=== PATIENT | male | born 1940 | race Caucasian/White ===

== ENCOUNTER 2019-01-20 12:00 | Observation (INO) | payer OTHER ==
[~2019-01-20] VITALS: Ht 190.5 cm; Wt 87.0 kg
[~2019-01-20 12:00] MED LIST: FINA5TAB4 PO; LEVO200T5 PO; LOSA25TA25 PO; TADA5TAB2 PO; TAMS-11 PO
[2019-01-20] MEDS ORDERED: LACTATED RINGERS 1,000 ML IV SCH (12:19)
[2019-01-20] MEDS ORDERED: ACETAMINOPHEN 500 MG TABLET PO ONE (12:30)
[2019-01-20] MEDS ORDERED: GABAPENTIN 300 MG CAPSULE PO ONE (12:30)
[2019-01-20] MEDS ORDERED: FENTANYL PF 250 MCG/5ML ONE (15:00)
[2019-01-20] MEDS ORDERED: BUPIVACAINE/PF 0.25% ONE ×2 (15:21→15:51)
[2019-01-20] MEDS ORDERED: THROMBIN 5,000 UNIT VIAL TP ONE (15:21)
[2019-01-20] MEDS ORDERED: EPINEPHRINE 1 MG/ML, 1ML ONE (15:22)
[2019-01-20] MEDS ORDERED: BACITRACIN 50,000 UNIT ONE (15:22)
[2019-01-20] MEDS ORDERED: MEPERIDINE/PF 25MG/0.5ML IVPush PRN (16:30)
[2019-01-20] MEDS ORDERED: HYDROmorphone 2 MG/ML, 1ML IVPush PRN (16:30)
[2019-01-20] MEDS ORDERED: FENTANYL PF 100 MCG/2ML IV PRN (16:30)
[2019-01-20] MEDS ORDERED: PROMETHAZINE 25 MG/ML, 1ML IV PRN (16:30)
[2019-01-20] MEDS ORDERED: ALBUTEROL SULFATE 2.5 MG/3 ML NPPB PRN (16:30)
[2019-01-20] MEDS ORDERED: OXYcodone 5 MG/5 ML ORAL.SOL UDC PO PRN (16:30)
[2019-01-20] MEDS ORDERED: LABETALOL 5MG/ML, 20ML IV PRN (16:30)
[2019-01-20] MEDS ORDERED: DIAZEPAM 5 MG/ML, 2ML IVPush PRN (16:30)
[2019-01-20] MEDS ORDERED: hydrALAzine 20 MG/ML, 1ML IV PRN (16:30)
[2019-01-20] MEDS ORDERED: SUCCINYLCHOLINE 20 MG/ML, 10ML ONE (17:20)
[2019-01-20] MEDS ORDERED: ROCURONIUM 10MG/ML,5ML ONE (17:20)
[2019-01-20] MEDS ORDERED: NEOSTIGMINE 1 MG/ML, 10ML ONE (17:20)
[2019-01-20] MEDS ORDERED: GLYCOPYRROLATE 0.2MG/1ML, 5ML ONE (17:20)
[2019-01-20] MEDS ORDERED: ONDANSETRON 2MG/ML, 2ML ONE (17:20)
[2019-01-20] MEDS ORDERED: DEXAMETHASONE 4 MG/ML, 1ML ONE (17:20)
[2019-01-20] MEDS ORDERED: CEFAZOLIN 1,000 MG ONE (17:20)
[2019-01-20] MEDS ORDERED: PROPOFOL 10 MG/ML, 20ML ONE (17:20)
[2019-01-20] MEDS ORDERED: TIZANIDINE 2MG TABLET PO PRN (17:30)
[2019-01-20] MEDS ORDERED: MAGNESIUM HYDROXIDE 8%, 30ML UDC PO PRN (17:30)
[2019-01-20] MEDS ORDERED: DIPHENHYDRAMINE 50 MG/ML, 1ML IVPush PRN (17:30)
[2019-01-20] MEDS ORDERED: ONDANSETRON 2MG/ML, 2ML IVPush PRN (17:30)
[2019-01-20] MEDS ORDERED: PROMETHAZINE 25 MG/ML, 1ML IM PRN (17:30)
[2019-01-20] MEDS ORDERED: HYDROmorphone 1 MG/ML, 1ML VIAL IVPush PRN (17:30)
[2019-01-20] MEDS ORDERED: HYDROmorphone PCA 30 MG/30 ML IV PRN (17:30)
[2019-01-20] MEDS ORDERED: BISACODYL 10 MG SUPP PR PRN (17:30)
[2019-01-20] MEDS ORDERED: OXYcodone/APAP 5/325MG TABLET PO PRN (17:30)
[2019-01-20] MEDS ORDERED: PHARMACY MAY ADJ FOR RENAL FX MC PRN (17:30)
[2019-01-20 20:00] VITALS: BP 133/75
[2019-01-20] MEDS: NS + 20MEQ KCL 1,000 ML IV SCH (20:19)
[2019-01-20] MEDS: SODIUM CHLORIDE FLUSH 10ML SYR IVF SCH (21:00)
[2019-01-21] MEDS: CEFAZOLIN PMX 1GM/50ML 50 ML IVPB SCH ×2 (00:09→08:06)
[2019-01-21 01:21] VITALS: BP 120/73
[2019-01-21] MEDS: NS + 20MEQ KCL 1,000 ML IV SCH ×2 (05:36→14:22)
[2019-01-21] MEDS: LEVOTHYROXINE 200 MCG TABLET PO SCH (05:36)
[2019-01-21 07:28] VITALS: BP 146/82
[2019-01-21] MEDS ORDERED: HYDROmorphone 2MG TABLET PO PRN (08:00)
[2019-01-21] MEDS: FINASTERIDE 5 MG TABLET PO SCH (08:55)
[2019-01-21] MEDS: TAMSULOSIN 0.4 MG CAP.ER.24H PO SCH (08:56)
[2019-01-21] MEDS: LOSARTAN 25MG TABLET PO SCH (08:56)
[2019-01-21] MEDS: SENNA/DOCUSATE TABLET PO SCH (08:56)
[2019-01-21] MEDS: SODIUM CHLORIDE FLUSH 10ML SYR IVF SCH ×2 (08:57→20:13)
[2019-01-21 14:15] VITALS: BP 135/80
[2019-01-21 19:55] VITALS: BP 147/77
[2019-01-21] MEDS: HYDROcodone/APAP 10/325 MG TABLET PO PRN (20:12)
[2019-01-22 00:30] VITALS: BP 117/67
[2019-01-22] MEDS: NS + 20MEQ KCL 1,000 ML IV SCH (01:00)
[2019-01-22] MEDS: HYDROcodone/APAP 10/325 MG TABLET PO PRN ×3 (01:05→09:03)
[2019-01-22] MEDS: LEVOTHYROXINE 200 MCG TABLET PO SCH (07:22)
[2019-01-22 08:00] VITALS: BP 152/78
[2019-01-22] MEDS ORDERED: HYDR-36 PO (08:31)
[2019-01-22] MEDS ORDERED: TIZA2CAP2 PO (08:33)
[2019-01-22] MEDS: SODIUM CHLORIDE FLUSH 10ML SYR IVF SCH (09:00)
[2019-01-22] MEDS: TAMSULOSIN 0.4 MG CAP.ER.24H PO SCH (09:00)
[2019-01-22] MEDS: LOSARTAN 25MG TABLET PO SCH (09:00)
[2019-01-22] MEDS: SENNA/DOCUSATE TABLET PO SCH (09:00)
[2019-01-22] MEDS: FINASTERIDE 5 MG TABLET PO SCH (09:00)
== END 2019-01-22 09:28 | disposition home or self-care (01) ==
LOC: OUT 12:00 → ORIP 17:20 → 4NE 18:25 → DCLOUNGE 01-22 09:13
PROVIDERS: ADMIT Neurological Surgery; ATTEND Neurological Surgery
DX: M48.062 Spinal stenosis, lumbar region with neurogenic claudication (principal); M51.9 Unspecified thoracic, thoracolumbar and lumbosacral intervertebral disc disorder; M50.30 Other cervical disc degeneration, unspecified cervical region; I10 Essential (primary) hypertension; E78.00 Pure hypercholesterolemia, unspecified; R25.1 Tremor, unspecified; G47.30 Sleep apnea, unspecified; E03.9 Hypothyroidism, unspecified; Z85.51 Personal history of malignant neoplasm of bladder; Z87.891 Personal history of nicotine dependence
CPT/HCPCS: 63047; 63048; 72100; 96365; 96366; 97161; 97165; G0378; J0171; J0330; J0690; J1100; J2405; J2704; J3010; J3480; J3490; J7120; J2710